=== PATIENT | female | born 1985 | race Caucasian/White ===

== ENCOUNTER 2024-09-05 10:29 | Inpatient (IN) | payer OTHER ==
[~2024-09-05] VITALS: Ht 162.5 cm; Wt 49.9 kg
[2024-09-05 10:53] VITALS: BP 99/57
[2024-09-05] MEDS ORDERED: SODIUM CHLORIDE 0.9% 1,000 ML IV ONE ×2 (10:55→11:55)
[2024-09-05] MEDS ORDERED: MORPHINE Sulfate 2 MG/ML SYR IV ONE ×2 (10:55→11:10)
[2024-09-05] MEDS ORDERED: Ondansetron Hydrochloride 4 MG/2 ML VIAL IV ONE (10:55)
[2024-09-05] MEDS ORDERED: Ketorolac Tromethamine 15 MG/ML VIAL IV ONE (10:55)
[2024-09-05] MEDS ORDERED: IOHEXOL 300 MG/ML 100 ML VIAL IV ONE (11:00)
[2024-09-05 11:12] LABS: HEMATOCRIT 43.1 % (37.0-47.0); MEAN CELL VOLUME 97.3 fl (81.0-99.0); MEAN CORPUSCULAR HGB 31.2 pg (27.0-31.0); MEAN PLATELET VOLUME 9.8 fl (9.6-12.3); PLATELET COUNT AUTOMATED 286 10*3/uL (130-400); RED BLOOD COUNT 4.43 10*6/uL (4.10-5.10); RED CELL DISTRI WIDTH 12.1 % (0-14.5); WHITE BLOOD COUNT 30.5 10*3/uL (4.8-10.8)
[2024-09-05 11:14] LABS: MANUAL DIFF REFLEX YES
[2024-09-05 11:31] LABS: TOTAL CELLS COUNTED 100 #CELLS; VACUOLATION OF NEUTROPHILS SLIGHT
[2024-09-05 11:32] LABS: BUN 12 mg/dl (9-23); CHLORIDE 101 mmol/L (98-107); LIPASE 22 U/L (12-53); PLATELET SUFFICIENCY NORMAL (NORMAL); POLYCHROMASIA SLIGHT
[2024-09-05 11:33] LABS: POTASSIUM 4.2 mmol/L (3.4-5.1)
[2024-09-05 11:34] LABS: BILIRUBIN Negative (Negative); BLOOD 1+ (Negative); CLARITY Cloudy (Clear); COLOR Orange (Yellow); GLUCOSE Negative (Negative); KETONE Trace (Negative); LEUKO ESTERASE 2+ (Negative); NITRITE Positive (Negative)
[2024-09-05 11:48] LABS: PH 8.5 (4.5-8.0)
[2024-09-05 11:49] LABS: BACTERIA 4+; WBC 31-40 wbc/hpf (0-5)
[2024-09-05 11:52] LABS: URINE AMPHETAMINES Positive (1000ng/ml); URINE BARBITURATES Negative (200ng/ml); URINE BENZODIAZEPINES Negative (200ng/ml); URINE CANNABINOIDS (THC) Positive (50ng/ml); URINE COCAINE Negative (300ng/ml); URINE METHADONE Negative (300ng/ml); URINE OPIATES Negative (300ng/ml); URINE PHENCYCLIDINE Negative (25ng/ml)
[2024-09-05] MEDS ORDERED: Ceftriaxone Sodium 1 GM/10 ML SYR IV ONE (11:55)
[2024-09-05] MEDS ORDERED: MORPHINE Sulfate 2 MG/ML SYR IV PRN (13:55)
[2024-09-05] MEDS ORDERED: ACETAMINOPHEN 650 MG SUPP R PRN (13:55)
[2024-09-05] MEDS ORDERED: BISACODYL 5 MG TAB PO PRN (13:55)
[2024-09-05] MEDS ORDERED: Magnesium Hydroxide 30 ML UDC PO PRN (13:55)
[2024-09-05] MEDS ORDERED: Ondansetron Hydrochloride 4 MG/2 ML VIAL IV PRN (13:55)
[2024-09-05] MEDS ORDERED: BISACODYL 10 MG SUPP R PRN (13:55)
[2024-09-05] MEDS ORDERED: ACETAMINOPHEN 325 MG TAB PO PRN (13:55)
[2024-09-05] MEDS ORDERED: TEMAZEPAM 15 MG CAP PO PRN (13:55)
[2024-09-05] MEDS ORDERED: METHOCARBAMOL 750 MG TAB PO PRN (14:00)
[2024-09-05] MEDS ORDERED: FOLIC ACID 1 MG TAB PO ONE (14:00)
[2024-09-05] MEDS ORDERED: MAGNESIUM SULFATE 100 ML IV ONE (14:00)
[2024-09-05] MEDS ORDERED: Water, Sterile 10 ML VIAL IV PRN (14:00)
[2024-09-05] MEDS ORDERED: Dicyclomine Hydrochloride 20 MG TAB PO PRN (14:00)
[2024-09-05] MEDS ORDERED: hydrOXYzine 50 MG CAP PO PRN (14:00)
[2024-09-05] MEDS ORDERED: Thiamine 200 MG/2 ML VIAL IV SCH (14:00)
[2024-09-05] MEDS ORDERED: Clindamycin Phosphate 50 ML IV SCH (16:00)
[2024-09-05] MEDS ORDERED: LORazepam 1 MG TAB PO SCH (16:00)
[2024-09-05 17:19] VITALS: BP 90/55
[2024-09-05 21:49] VITALS: BP 93/66
[2024-09-05] MEDS ORDERED: Ciprofloxacin Hydrochloride 500 MG TAB PO SCH (22:00)
[2024-09-06] VITALS: BP 97/66
[2024-09-06] MEDS ORDERED: Pantoprazole Sodium 40 MG TAB PO SCH (06:00)
[2024-09-06 06:10] LABS: HEMATOCRIT 35.3 % (37.0-47.0); MEAN PLATELET VOLUME 10.2 fl (9.6-12.3); PLATELET COUNT AUTOMATED 277 10*3/uL (130-400); RED BLOOD COUNT 3.64 10*6/uL (4.10-5.10); RED CELL DISTRI WIDTH 12.2 % (0-14.5); WHITE BLOOD COUNT 23.1 10*3/uL (4.8-10.8)
[2024-09-06 06:21] LABS: MANUAL DIFF REFLEX YES
[2024-09-06 06:33] LABS: ALKALINE PHOSPHATASE 82 U/L (46-116); BUN 19 mg/dl (9-23); CHLORIDE 105 mmol/L (98-107); CHOLESTEROL 110 mg/dL (<200); LDL CHOLESTEROL 55 mg/dL (9-159); LIPASE 20 U/L (12-53); POTASSIUM 3.8 mmol/L (3.4-5.1); SGPT/ALT 9 U/L (5-49); TRIGLYCERIDES 50 mg/dl (<150)
[2024-09-06 06:42] LABS: ACT PARTIAL THROMBO TIME 37.8 SECONDS (20.0-32.1)
[2024-09-06 07:34] LABS: PLATELET SUFFICIENCY NORMAL (NORMAL); TOTAL CELLS COUNTED 100 #CELLS
[2024-09-06 08:00] VITALS: BP 105/68
[2024-09-06] MEDS ORDERED: Enoxaparin Sodium 40 MG/0.4 ML SYR SC SCH (10:00)
[2024-09-06] MEDS ORDERED: MULTIVITAMIN 1 TAB TAB PO SCH (10:00)
[2024-09-06 12:00] VITALS: BP 107/62
[2024-09-06 16:00] VITALS: BP 94/55
[2024-09-06] MEDS ORDERED: LORazepam 1 MG TAB PO SCH (18:00)
[2024-09-06 20:00] VITALS: BP 99/59
[2024-09-07] VITALS: BP 90/48
[2024-09-07] MEDS ORDERED: LORazepam 1 MG TAB PO PRN
[2024-09-07 06:42] LABS: BASO % 0.2 % (0.0-1.0); EOS # 0.3 10*3/uL (0.0-0.4); HEMATOCRIT 34.1 % (37.0-47.0); MEAN CELL VOLUME 95.8 fl (81.0-99.0); MEAN CORPUSCULAR HGB 30.9 pg (27.0-31.0); MEAN CORPUSCULAR HGB CONC 32.3 g/dl (33.0-37.0); MONO % 6.5 % (3.0-9.0); NEUT # 12.2 10*3/uL (2.3-7.9); NEUT % 82.2 % (47.0-73.0); PLATELET COUNT AUTOMATED 288 10*3/uL (130-400); RED BLOOD COUNT 3.56 10*6/uL (4.10-5.10); WHITE BLOOD COUNT 14.8 10*3/uL (4.8-10.8)
[2024-09-07 07:23] LABS: BUN 11 mg/dl (9-23); CHLORIDE 105 mmol/L (98-107); POTASSIUM 3.5 mmol/L (3.4-5.1)
[2024-09-07] MEDS ORDERED: SODIUM CHLORIDE 0.9% 1,000 ML IV ONE (07:45)
[2024-09-07 08:00] VITALS: BP 99/54
[2024-09-07] MEDS ORDERED: Vitamin D 1,000 IU TAB (25 MCG) PO SCH (10:00)
[2024-09-07 12:00] VITALS: BP 102/47; BP 97/58
[2024-09-07 16:00] VITALS: BP 97/58
[2024-09-07 20:00] VITALS: BP 124/83
[2024-09-08] VITALS: BP 107/78
[2024-09-08 05:19] LABS: BUN 8 mg/dl (9-23); CHLORIDE 106 mmol/L (98-107); POTASSIUM 3.7 mmol/L (3.4-5.1)
[2024-09-08 06:04] LABS: BASO # 0.1 10*3/uL (0.0-0.1); BASO % 0.4 % (0.0-1.0); EOS # 0.4 10*3/uL (0.0-0.4); EOS % 3.4 % (1.0-4.0); HEMATOCRIT 34.2 % (37.0-47.0); MEAN CELL VOLUME 93.2 fl (81.0-99.0); MEAN CORPUSCULAR HGB 33.5 pg (27.0-31.0); MEAN PLATELET VOLUME 9.8 fl (9.6-12.3); MONO # 1.1 10*3/uL (0.1-1.0); MONO % 9.6 % (3.0-9.0); NEUT # 8.2 10*3/uL (2.3-7.9); NEUT % 70.4 % (47.0-73.0); PLATELET COUNT AUTOMATED 326 10*3/uL (130-400); RED BLOOD COUNT 3.67 10*6/uL (4.10-5.10); WHITE BLOOD COUNT 11.6 10*3/uL (4.8-10.8)
[2024-09-08 08:00] VITALS: BP 109/76
[2024-09-08] MEDS ORDERED: CIPROFLOXACIN500 M4 PO (11:55)
[2024-09-08] MEDS ORDERED: CLEOCIN HCL300 MG PO (11:55)
[2024-09-08 12:00] VITALS: BP 97/63
== END 2024-09-08 14:00 | disposition home or self-care (01) | DRG 720 ==
LOC: ED 10:29 → EDHOLD 11:30 → 4E 11:30 → EDHOLD 15:38 → 4E 21:42
PROVIDERS: Emergency Medicine; ADMIT Internal Medicine; ATTEND Internal Medicine
DX: A41.9 Sepsis, unspecified organism (principal); E43 Unspecified severe protein-calorie malnutrition; N30.01 Acute cystitis with hematuria; F10.930 Alcohol use, unspecified with withdrawal, uncomplicated; K52.9 Noninfective gastroenteritis and colitis, unspecified; F17.200 Nicotine dependence, unspecified, uncomplicated; K21.9 Gastro-esophageal reflux disease without esophagitis; E55.9 Vitamin D deficiency, unspecified; R73.9 Hyperglycemia, unspecified; B96.20 Unspecified Escherichia coli [E. coli] as the cause of diseases classified elsewhere; Z88.0 Allergy status to penicillin